=== PATIENT | male | born 1975 | race Caucasian/White ===

== ENCOUNTER 2023-02-20 10:57 | Outpatient (AMB) | payer OTHER, SELFPAY ==
--- NOTE | 2023-02-20 11:10 | A.OFFVIS_ITS ---
Intake Vital Signs 02/20/23 11:22 Height 6 ft 2 in Weight 207 lb BMI 26.6 BP 156/99 H Blood Pressure Location Rt brachial Position Sitting Pulse 71 Pulse Source Pulse Oximeter Pulse Oximetry (%) 99 Oxygen Delivery Method Room Air Intake Visit Reasons: RIGHT KNEE PAIN AND SCIATICA Allergies No Known Allergies Allergy (Verified 02/20/23 11:22) HPI RIGHT KNEE PAIN AND SCIATICA HPI Details Patient is a 47 years old male with history of post laminectomy syndrome, right knee mild chondromalacia patella and sciatica, presents today with chronic right knee and back pain with radiculopathy. He attributes his right knee pain to soccer injury and falling while playing with his son a year ago. Reports history of right leg sciatica and back surgery at age 31 and was seen by Dr. Valverde in the past but not interested in additional surgery. Patient was seen by NATALIE and deemed non surgical. Right knee MRI report is noted below. Recent right popliteal US was normal per imaging on 11/14/22. Right knee presents with localized patellofemoral crepitus and mild tenderness in the medial aspect of the knee. SLR testing is positive on the right in L5-S1 distribution and also reproduces his right posterior knee pain. Pain interferes with his daily activities, functions, sleep and social interactions. Pain intensity is worst as 7-8/10 during morning, twisting, bending or sitting. Tylenol and Ibuprofen have provided temporary relief. Physical therapy in October, provided him partial improvement in pain relief and functioning. Location Right knee, radiates down calf into inside of right foot Duration Chronic intermittent pain for over 1 year Characteristics of symptom or complaint Aching, numbness, stabbing, dull, heavy, sore Aggravating or associated factors Walking, climbing stairs, sitting, bending, driving, twisting Relieving factors Ibuprofen 800mg TID prn, Tylenol extra strength 2,000mg per day Treatment MRI- at [facility], PT at [facility] of LE-normal [facility] Medical History (Updated 02/22/23 @ 19:41 by CASIE Cho) Back pain Elevated lipids Knee pain Sciatica Surgical History (Updated 02/20/23 @ 11:30 by Angela Brooke) History of back surgery Social History (Updated 02/20/23 @ 11:24 by Angela Brooke) Alcohol intake: current Alcohol intake frequency: a few times a month Patient Tobacco Use Status: Former Tobacco user Review of Systems Const All systems reviewed & are unremarkable except as noted in HPI and below Neuro Denies Sensory deficit (Neuro) Physical Exam Vital Signs: Last Vital Signs Pulse 71 02/20/23 11:22 BP 156/99 H 02/20/23 11:22 Pulse Ox 99 02/20/23 11:22 Oxygen Delivery Method Room Air 02/20/23 11:22 BMI result Body Mass Index 26.6 General: Appears afebrile. Alert and oriented. Mood and affect appropriate. Follows and participates in conversation appropriately. Respiratory effort is unlabored. No cough. Able to transition from sit to stand unassisted. Ambulates with bilaterally normal heel strike and toe off. Back/Spine/Pelvis Cervical Spine: cervical ROM normal, No Cervical spine tenderness and No step off deformity Thoracic/Lumbar Spine: thoracic and lumbar spine normal to inspection, Thoracic/lumbar spine scar(s) (well healed right side scar), Lasegue's sign positive on the right and diffuse, pain with thoraco-lumbar ROM (mild), srikanth blane muscle tenderness, No thoracic spinal tenderness, No lumbar spinal tenderness and straight leg raise positive right at 50 degrees Pelvis: buttock tenderness on the right (only with sitting) and sciatic notch tenderness (only with sitting) on the right Sacroiliac joints: bilaterally nontender Neuro General: gait normal and Normal light touch and pain sensation Cognition (Neuro): normal cognition Gait exam (Neuro): Normal gait present and No Assistive device used Motor exam (neuro): 5/5 motor strength present throughout, no tremor noted and Motor abnormalities not present Sensory Exam: No Sensory deficit (Neuro) Deep tendon reflexes (DTR's): Right patellar reflex intensity grade: 2+, Left patellar reflex intensity grade: 2+, Right ankle reflex intensity grade: 1+ and Left ankle reflex intensity grade: 2+ Coordination: Romberg test negative Extrem General: Yes capillary refill normal, Yes no clubbing, cyanosis or edema and Yes no calf tenderness Right lower extremity: knee (Mildly limited ROM due to pain) Details: tenderness Location: of the patella and of the medial joint line and crepitus; no swelling, no ecchymosis and no unusual warmth Results Reviewed Results Reviewed: US EXTREMITY NONVASCULAR LIMITED, RIGHT 11/14/22 at [facility] CLINICAL INFORMATION: Right popliteal fossa FINDINGS: No fluid collection identified in the right popliteal fossa. The imaged segment of the right popliteal vein is patent with no evidence of thrombus. Right popliteal artery appears patent. IMPRESSION: No fluid collection identified in the right popliteal fossa. Right knee MRI at [facility] 12/16/22 Assessment & Plan Assessment & Plan (1) Right knee pain: Code(s): M25.561 - Pain in right knee (2) Post laminectomy syndrome: Code(s): M96.1 - Postlaminectomy syndrome, not elsewhere classified (3) Low back pain radiating to right lower extremity: Code(s): M54.50 - Low back pain, unspecified; M79.604 - Pain in right leg (4) Lumbar spondylosis: Code(s): M47.816 - Spondylosis without myelopathy or radiculopathy, lumbar region (5) Chondromalacia of patella, right: Code(s): M22.41 - Chondromalacia patellae, right knee Plan Discussed risks and benefits of different treatment options for back and right knee pain, including epidural steroid injections, peripheral nerve stimulation with SPRINT and spinal cord stimulation trial for post laminectomy syndrome and right sided radicular pain. Will send request to [facility] for lumbar spine MRI report prior to interventional treatments. Patient is already exhausted conservative medical management, including NSAIDs and physical therapy. Will consider interventions targeted towards these pain generators based on the lumbar spine MRI results. Will discuss results of the MRI findings with patient once it's available and consider interventional therapy as indicated. Informational booklets for knee Sprint PNS trial provided to patient for review. For symptomatic management while waiting for interventional therapies, recommended trial of TENS device either [id number] or we can provide script via [employer]. All questions and concerns have been answered and the patient agreed with the plan. Coding Level of Care Code New Pt Level 4 (90357) Diagnoses Right knee pain M25.561 Post laminectomy syndrome M96.1 Low back pain radiating to right lower extremity M54.50; M79.604 Lumbar spondylosis M47.816 Chondromalacia of patella, right M22.41
[2023-02-20 11:22] VITALS: BP 156/99; PULSE 71; O2SAT 99; BMI 26.6
== END 2023-02-20 11:51 | disposition home or self-care (01) ==
PROVIDERS: PCP Nurse Practitioner Primary Care; Visit Provider Nurse Practitioner Family
DX: M25.561 Pain in right knee (principal); M96.1 Postlaminectomy syndrome, not elsewhere classified; M54.50 Low back pain, unspecified; M79.604 Pain in right leg; M47.816 Spondylosis without myelopathy or radiculopathy, lumbar region; M22.41 Chondromalacia patellae, right knee
CPT/HCPCS: 99204

== ENCOUNTER → 2023-02-20 10:57 | Outpatient (BNVA) | payer OTHER, SELFPAY | PROVIDERS: PCP Nurse Practitioner Primary Care; Visit Provider Nurse Practitioner Family ==

== ENCOUNTER 2023-03-20 08:39 | Outpatient (AMB) | payer OTHER, SELFPAY ==
--- NOTE | 2023-03-20 08:49 | A.OFFVIS_ITS ---
Intake Vital Signs 03/20/23 08:55 Height 6 ft 2 in Weight 208 lb BMI 26.7 BP 144/98 H Blood Pressure Location Rt brachial Position Sitting Pulse 68 Pulse Source Pulse Oximeter Pulse Oximetry (%) 98 Oxygen Delivery Method Room Air Intake Visit Reasons: Follow Up/MRI Results Allergies No Known Allergies Allergy (Verified 03/20/23 08:56) HPI HPI Comments History of Present Illness Details Patient presents today for follow up to discuss interventional treatments for right knee pain. Patient reports his right knee is not his main pain generator today. He reports low back pain radiating to his right lower extremity with numbness and tingling. He also reports left neck pain with radiation of pain to his left upper lateral arm and into his left thumb and 2nd fingers with paresthesias and tingling. Turning head to right side will partially alleviate his symptoms, however cervical rotation to the left, extension and flexion with lateral left bending exacerbate his symptoms. He denies any recent trauma, injury or falls. Reports physical therapy and home exercises are not improving his symptoms. He recently went for chiropractic adjustment for neck and left shoulder pain with increase in pain, and reports neck cracking per chiropractic manipulation are not helpful. Pain affects his daily activities, mood, sleep and quality of life. Patient denies any fever, dizziness, visual disturbances, weakness, gait imbalances, bladder or bowel incontinence or saddle anesthesia. PRIOR: Patient is a 47 years old male with history of post laminectomy syndrome, right knee mild chondromalacia patella and sciatica, presents today with chronic right knee and back pain with radiculopathy. He attributes his right knee pain to soccer injury and falling while playing with his son a year ago. Reports history of right leg sciatica and back surgery at age 31 and was seen by Dr. Valverde in the past but not interested in additional surgery. Patient was seen by NEORenee and deemed non surgical. Right knee MRI report is noted below. Recent right popliteal US was normal per imaging on 11/14/22. Right knee presents with localized patellofemoral crepitus and mild tenderness in the medial aspect of the knee. SLR testing is positive on the right in L5-S1 distribution and also reproduces his right posterior knee pain. Pain interferes with his daily activities, functions, sleep and social interactions. Pain intensity is worst as 7-8/10 during morning, twisting, bending or sitting. Tylenol and Ibuprofen have provided temporary relief. Physical therapy in October, provided him partial improvement in pain relief and functioning. Location Right knee, radiates down calf into inside of right foot Duration Chronic intermittent pain for over 1 year Characteristics of symptom or complaint Aching, numbness, stabbing, dull, heavy, sore Aggravating or associated factors Walking, climbing stairs, sitting, bending, driving, twisting Relieving factors Ibuprofen 800mg TID prn, Tylenol extra strength 2,000mg per day Treatment MRI- at [place], PT at [facility], [place], of [facility] Medical History (Updated 03/20/23 @ 09:11 by CASIE Cho) Back pain Elevated lipids Knee pain Sciatica Surgical History (Updated 02/20/23 @ 11:30 by Angela Brooke) History of back surgery Social History (Updated 02/20/23 @ 11:24 by Angela Brooke) Alcohol intake: current Alcohol intake frequency: a few times a month Patient Tobacco Use Status: Former Tobacco user Review of Systems Const All systems reviewed & are unremarkable except as noted in HPI and below Neuro Denies Sensory deficit (Neuro) Physical Exam Vital Signs: Last Vital Signs Pulse 68 03/20/23 08:55 BP 144/98 H 03/20/23 08:55 Pulse Ox 98 03/20/23 08:55 Oxygen Delivery Method Room Air 03/20/23 08:55 BMI result Body Mass Index 26.7 General: Appears afebrile. Alert and oriented. Mood and affect appropriate. Follows and participates in conversation appropriately. Respiratory effort is unlabored. No cough. Able to transition from sit to stand unassisted. Ambulates with bilaterally normal heel strike and toe off. Neck Neck: Yes normal visual inspection, Yes full ROM, Yes no lymphadenopathy, Yes supple, No anterior neck swelling, Yes no JVD and No prominent dorsocervical fat pad Back/Spine/Pelvis Other: Patient with decreased cervical ROM with left lateral rotation. Reports increased pain with cervical extension and flexion. Spurling compression test equivocal. Pain is unchanged by Spurling maneuver with retraction. Elvey's tension test positive on the left, with radiation of pain from neck to wrist and left thumb and left 2nd finger. Lhermitte's test was negative. DTR intact, +2 and symmetrical. Patient demonstrated 5/5 motor strength of bilateral upper extremities. 2 + radial pulses. Cervical Spine: No cervical muscular tenderness, pain with cervical ROM (limited left lateral and bending rotation), No Cervical spine tenderness and No step off deformity Thoracic/Lumbar Spine: thoracic and lumbar spine normal to inspection, Thoracic/lumbar spine scar(s) (well healed right side scar), Lasegue's sign positive on the right and diffuse, pain with thoraco-lumbar ROM (mild), paraspinal muscle tenderness, No thoracic spinal tenderness, No lumbar spinal tenderness and straight leg raise positive right at 50 degrees Pelvis: buttock tenderness on the right (only with sitting) and sciatic notch tenderness (only with sitting) on the right Sacroiliac joints: bilaterally nontender Neuro General: gait normal and Normal light touch and pain sensation Cognition (Neuro): normal cognition Gait exam (Neuro): Normal gait present and No Assistive device used Motor exam (neuro): 5/5 motor strength present throughout, no tremor noted and Motor abnormalities not present Sensory Exam: No Sensory deficit (Neuro) Extrem General: Yes capillary refill normal, Yes no clubbing, cyanosis or edema and Yes no calf tenderness Results Reviewed Results Reviewed: US EXTREMITY NONVASCULAR LIMITED, RIGHT 11/14/22 at [facility]ICAL INFORMATION: Right popliteal fossa FINDINGS: No fluid collection identified in the right popliteal fossa. The imaged segment of the right popliteal vein is patent with no evidence of thrombus. Right popliteal artery appears patent. IMPRESSION: No fluid collection identified in the right popliteal fossa. Right knee MRI at [place] 12/16/22 Assessment & Plan Assessment & Plan (1) Low back pain radiating to right lower extremity: Code(s): M54.50 - Low back pain, unspecified; M79.604 - Pain in right leg (2) Post laminectomy syndrome: Code(s): M96.1 - Postlaminectomy syndrome, not elsewhere classified (3) Lumbar spondylosis: Code(s): M47.816 - Spondylosis without myelopathy or radiculopathy, lumbar region (4) Cervical spondylosis: Code(s): M47.812 - Spondylosis without myelopathy or radiculopathy, cervical region (5) Cervical radiculopathy: Code(s): M54.12 - Radiculopathy, cervical region Plan MRI of the lumbar and cervical spine to assess for neural integrity and compression. Patient has tried NSAIDs, acetaminophen, home exercise program, physical therapy and chiropractic manipulations without significant pain relief and minimal function improvement. Pain appears to be a combination of facetogenic, discogenic and with radicular pain components in his cervical and lumbar regions. History of back surgery ~[address] Valverde. Will consider interventions targeted towards these pain generators based on the MRI results. Patient will return to the clinic to discuss results of the MRI findings when it is done and consider interventional therapy as indicated. All questions and questions and concerns have been answered and patient agreed with the plan. Follow up for MRI results and sooner if needed. Orders: Orders MR lumbar spine wo con Today M47.816 - Spondylosis without myelopathy or radiculopathy, lumbar region, M54.50 - Low back pain, unspecified, M79.604 - Pain in right leg, M96.1 - Postlaminectomy syndrome, not elsewhere classified MR cervical spine wo con Today M47.812 - Spondylosis without myelopathy or radiculopathy, cervical region, M54.12 - Radiculopathy, cervical region Coding Level of Care Code Est Pt Level 4 (70385) Diagnoses Low back pain radiating to right lower extremity M54.50; M79.604 Post laminectomy syndrome M96.1 Lumbar spondylosis M47.816 Cervical spondylosis M47.812 Cervical radiculopathy M54.12
[2023-03-20 08:55] VITALS: BP 144/98; PULSE 68; O2SAT 98; BMI 26.7
== END 2023-03-20 09:16 | disposition home or self-care (01) ==
PROVIDERS: PCP Nurse Practitioner Primary Care; Visit Provider Nurse Practitioner Family
DX: M54.50 Low back pain, unspecified (principal); M79.604 Pain in right leg; M96.1 Postlaminectomy syndrome, not elsewhere classified; M47.816 Spondylosis without myelopathy or radiculopathy, lumbar region; M47.812 Spondylosis without myelopathy or radiculopathy, cervical region; M54.12 Radiculopathy, cervical region
CPT/HCPCS: 99214

== ENCOUNTER → 2023-03-20 08:39 | Outpatient (BNVA) | payer OTHER, SELFPAY | PROVIDERS: PCP Nurse Practitioner Primary Care; Visit Provider Nurse Practitioner Family ==

== ENCOUNTER 2023-05-21 14:14 | Outpatient (REF) | payer OTHER, SELFPAY ==
--- NOTE | 2023-05-21 14:18 | EMG_ITS ---
Chief complaint: 4 months of throbbing and numbness on left arm with neck motion, numbness affecting left 1st and 2nd digits. Points to upper back/shoulder blade. Reason for referral: Evaluate for radiculopathy versus plexopathy Referred by: Cici Burgess NP Procedure done: Left upper extremity NCS/EMG Precautions and/or limitations: None The limb temperature was monitored continuously and remained between 32-36 degrees C during the performance of the NCS. Nerve Conduction Studies Anti Sensory Summary Table ?Stim Site NR Onset (ms) Norm Onset (ms) Peak (ms) Norm Peak (ms) O-P Amp (?V) Norm O-P Amp Site1 Site2 Delta-0 (ms) Dist (cm) Marin (m/s) Norm Marin (m/s) Left Median Anti Sensory (2nd Digit) Wrist ? 2.3 3.6 <3.6 12.6 >10 Wrist 2nd Digit 2.3 14.0 61 Left Radial Anti Sensory (Thumb) Forearm ? 2.0 3.1 <3.1 15.8 Forearm Thumb 2.0 0.0 Left Ulnar Anti Sensory (5th Digit) Wrist ? 2.7 3.6 <3.7 19.3 >15.0 Wrist 5th Digit 2.7 14.0 52 Motor Summary Table ?Stim Site NR Onset (ms) Norm Onset (ms) O-P Amp (mV) Norm O-P Amp iAmp (mV) Amp (1st) (%) Site1 Site2 Delta-0 (ms) Dist (cm) Marin (m/s) Norm Marin (m/s) Left Median Motor (Abd Poll Brev) Wrist ? 3.7 <3.9 9.1 >4.5 10.7 100.0 Elbow Wrist 4.2 22.0 52 >45 Elbow ? 7.9 10.2 12.5 112.1 Left Ulnar Motor (Abd Dig Minimi) Wrist ? 3.0 <3.0 7.9 >5 9.3 100.0 B Elbow Wrist 4.0 23.0 58 >45 B Elbow ? 7.0 7.3 8.4 92.4 A Elbow B Elbow 1.9 10.0 53 >45 A Elbow ? 8.9 7.2 8.4 91.1 EMG ?Side Muscle Nerve Root Ins Act Fibs Psw Amp Dur Poly Recrt Int Pat Comment Left 1stDorInt Ulnar C8-T1 Nml Nml Nml Nml Nml 0 Nml Complete Left FlexCarRad Median C6-7 Nml Nml Nml Nml Nml 0 Nml Complete Left Biceps Musculocut C5-6 Nml Nml Nml Nml Nml 0 Nml Complete Left Triceps Radial C6-7-8 Nml Nml Nml Nml Nml 0 Nml Complete Left Deltoid Axillary C5-6 Nml Nml Nml Nml Nml 0 Nml Complete Paraspinal EMG ?Side Muscle Nerve Root Ins Act Fibs Psw Comment Left Cervical Upper Rami Nml Nml Nml Left Cervical Mid Rami Nml Nml Nml Left Cervical Lower Rami Nml Nml Nml FINDINGS: All motor and sensory nerves tested showed normal latencies, amplitudes and conduction velocities. Concentric needle EMG was performed in selected muscles of the left upper extremity and cervical paraspinals. Study did not reveal signs of electric abnormalities as shown in the table below. IMPRESSION: 1. This is a normal study. 2. There is no electrodiagnostic evidence for median neuropathy, ulnar neuropathy, brachial plexopathy, or cervical radiculopathy. Thank you for your kind referral. Carolina Woodward MD, NAHID Board Certified, [place] [employer] and [employer] (ABPMR) Board Certified, [place] [employer] Electro[employer]ostic [employer] (ABEM) [place] [id number] [facility]
== END 2023-05-21 14:15 | disposition home or self-care (01) ==
LOC: HO.NEURO 14:14
PROVIDERS: Visit Provider Nurse Practitioner Family
DX: R20.0 Anesthesia of skin (principal); M54.12 Radiculopathy, cervical region
CPT/HCPCS: 95886; 95909

== ENCOUNTER → 2023-05-21 14:18 | Outpatient (BNV) | payer OTHER, SELFPAY | PROVIDERS: Visit Provider Physical Medicine & Rehabilitation | DX: M79.602 Pain in left arm (principal); R20.2 Paresthesia of skin | CPT/HCPCS: 95886; 95909 ==

== ENCOUNTER 2023-05-25 08:41 | Outpatient (AMB) | payer OTHER, SELFPAY ==
--- NOTE | 2023-05-25 08:49 | A.OFFVIS_ITS ---
Intake Vital Signs 3 05/25/23 08:50 Height 6 ft 2 in Weight 211 lb BMI 27.1 BP 142/85 H Blood Pressure Location Rt brachial Position Sitting Respiration 14 Pulse 59 Pulse Oximetry (%) 98 Oxygen Delivery Method Room Air Intake Visit Reasons: EMG Results/ Next Steps/Confirmed Allergies No Known Allergies Allergy (Verified 05/25/23 08:53) Medication List - Last Reconciled 05/25/23 by Lexii Lundy, ORTHODONTIC ASSISTANT gabapentin 300 mg PO BEDTIME 30 days ibuprofen 800 mg PO TID methocarbamol 750 mg PO BID PRN HPI HPI Comments 2 History of Present Illness0 Details Patient presents today for follow up to review recent left upper extremity results. He continues to endorse neck pain with radiation into his left periscapular and levator scapular muscles and posterior shoulder areas with left arm numbness, mostly in his left thumb and index fingers. Pain is worse with sitting, cervical extension or rotating his head to the left. Pain goes away when he crosses his arms, raises his righ hand or looks to the right. Pain does not interrupt his sleep. Patient reports he has reached out to Neurosurgeons office at [facility] Dr. Valverde regarding his spine, left arm and knee pain and was recommended to pursue PT which he is starting tomorrow at [facility]. His recent EMG study of LUE and cervical paraspinals was normal without electrodiagnostic evidence for median neuropathy, ulnar neuropathy, brachial plexopathy, or cervical radiculopathy. He continues to take gabapentin with mild relief. Patient denies any fever, visual disturbances, dizziness, shortness of breaths, skin discolorations or swelling in his bilateral arm, hand or fingers, weakness, bladder or bowel dysfunction, or saddle anesthesia. PRIOR: Patient presents today for follow up to discuss interventional treatments for right knee pain. Patient reports his right knee is not his main pain generator today. He reports low back pain radiating to his right lower extremity with numbness and tingling. He also reports left neck pain with radiation of pain to his left upper lateral arm and into his left thumb and 2nd fingers with paresthesias and tingling. Turning head to right side will partially alleviate his symptoms, however cervical rotation to the left, extension and flexion with lateral left bending exacerbate his symptoms. He denies any recent trauma, injury or falls. Reports physical therapy and home exercises are not improving his symptoms. He recently went for chiropractic adjustment for neck and left shoulder pain with increase in pain, and reports neck cracking per chiropractic manipulation are not helpful. Pain affects his daily activities, mood, sleep and quality of life. Patient denies any fever, dizziness, visual disturbances, weakness, gait imbalances, bladder or bowel incontinence or saddle anesthesia. PRIOR: Patient is a 47 years old male with history of post laminectomy syndrome, right knee mild chondromalacia patella and sciatica, presents today with chronic right knee and back pain with radiculopathy. He attributes his right knee pain to soccer injury and falling while playing with his son a year ago. Reports history of right leg sciatica and back surgery at age 31 and was seen by Dr. Valverde in the past but not interested in additional surgery. Patient was seen by NATALIE and deemed non surgical. Right knee MRI report is noted below. Recent right popliteal US was normal per imaging on 11/14/22. Right knee presents with localized patellofemoral crepitus and mild tenderness in the medial aspect of the knee. SLR testing is positive on the right in L5-S1 distribution and also reproduces his right posterior knee pain. Pain interferes with his daily activities, functions, sleep and social interactions. Pain intensity is worst as 7-8/10 during morning, twisting, bending or sitting. Tylenol and Ibuprofen have provided temporary relief. Physical therapy in October, provided him partial improvement in pain relief and functioning. Location Right knee, radiates down calf into inside of right foot Duration Chronic intermittent pain for over 1 year Characteristics of symptom or complaint Aching, numbness, stabbing, dull, heavy, sore Aggravating or associated factors Walking, climbing stairs, sitting, bending, driving, twisting Relieving factors Ibuprofen 800mg TID prn, Tylenol extra strength 2,000mg per day Treatment MRI- at [facility], PT at [facility], of [facility], [facility] Medical History (Updated 05/01/23 @ 10:48 by CASIE Cho) Elevated lipids Sciatica Back pain Knee pain Surgical History (Updated 02/20/23 @ 11:30 by Angela Brooke) History of back surgery Social History (Updated 02/20/23 @ 11:24 by Angela Brooke) Alcohol intake: current Alcohol intake frequency: a few times a month Patient Tobacco Use Status: Former Tobacco user Review of Systems Const All systems reviewed & are unremarkable except as noted in HPI and below Physical Exam Vital Signs: Last Vital Signs Pulse 59 05/25/23 08:50 Resp 14 05/25/23 08:50 BP 142/85 H 05/25/23 08:50 Pulse Ox 98 05/25/23 08:50 Oxygen Delivery Method Room Air 05/25/23 08:50 BMI result Body Mass Index 27.1 General: Appears afebrile. Alert and oriented. Mood and affect appropriate. Follows and participates in conversation appropriately. Respiratory effort is unlabored. No cough. Able to transition from sit to stand unassisted. Ambulates with bilaterally normal heel strike and toe off. Neck Neck: Yes no lymphadenopathy, Yes supple, No anterior neck swelling, Yes no JVD and No prominent dorsocervical fat pad Back/Spine/Pelvis Other: Patient with decreased cervical ROM with left lateral rotation and cervical extension. Significant TTP in cervical paraspinal, left>right, left levator scapulae and periscapular muscles. Minimal taut bands in these areas. Shoulder abduction test is negative bilaterally. Cervical Spine: cervical muscular tenderness, pain with cervical ROM (limited left lateral and bending rotation due to pain), No Cervical spine tenderness and No step off deformity Thoracic/Lumbar Spine: thoracic and lumbar spine normal to inspection Results Reviewed Results Reviewed: US EXTREMITY NONVASCULAR LIMITED, RIGHT 11/14/22 at [facility] CLINICAL INFORMATION: Right popliteal fossa FINDINGS: No fluid collection identified in the right popliteal fossa. The imaged segment of the right popliteal vein is patent with no evidence of thrombus. Right popliteal artery appears patent. IMPRESSION: No fluid collection identified in the right popliteal fossa. Right knee MRI at [facility] 12/16/22 NE electromyogram (EMG); NE nerve conduction velocity 05/21/23 FINDINGS: All motor and sensory nerves tested showed normal latencies, amplitudes and conduction velocities. Concentric needle EMG was performed in selected muscles of the left upper extremity and cervical paraspinals. Study did not reveal signs of electric abnormalities as shown in the table below. IMPRESSION: 1. This is a normal study. 2. There is no electrodiagnostic evidence for median neuropathy, ulnar neuropathy, brachial plexopathy, or cervical radiculopathy. Assessment & Plan Assessment & Plan (1) Left upper extremity numbness: Code(s): R20.0 - Anesthesia of skin (2) Cervical spondylosis: Code(s): M47.812 - Spondylosis without myelopathy or radiculopathy, cervical region (3) Cervical radiculopathy: Code(s): M54.12 - Radiculopathy, cervical region Plan EMG and NVC studies are normal, results were reviewed with patient and noted above. No electrodiagnostic evidence for median neuropathy, ulnar neuropathy, brachial plexopathy, or cervical radiculopathy. Cervical spine MRI was denied by his insurance. Patient is starting formal physical therapy tomorrow at [facility]. All questions were answered and patient agreed with the plan. Follow-up in 2-3 months to see response to physical therapy, if no response to physical therapy will consider further interventional strategy. Coding Level of Care Code Est Pt Level 3 (94775) Diagnoses Left upper extremity numbness R20.0 Cervical spondylosis M47.812 Cervical radiculopathy M54.12
[2023-05-25 08:50] VITALS: BP 142/85; PULSE 59; RESP 14; O2SAT 98; BMI 27.1
== END 2023-05-25 09:08 | disposition home or self-care (01) ==
PROVIDERS: PCP Internal Medicine; Visit Provider Nurse Practitioner Family
DX: R20.0 Anesthesia of skin (principal); M47.812 Spondylosis without myelopathy or radiculopathy, cervical region; M54.12 Radiculopathy, cervical region
CPT/HCPCS: 99213

== ENCOUNTER → 2023-05-25 08:41 | Outpatient (BNVA) | payer OTHER, SELFPAY | PROVIDERS: Visit Provider Nurse Practitioner Family ==